=== PATIENT | male | born 1995 | race Caucasian/White ===

== ENCOUNTER 2021-11-12 07:27 | Emergency (ER) | payer OTHER ==
--- NOTE | 2021-11-12 07:35 | EDM.PDOC ---
ED HPI GENERAL MEDICAL PROBLEM - General Chief Complaint: Back Pain or Injury Stated Complaint: BACK PAIN- POSSIBLY KIDNEY STONES Time Seen by Provider: 11/12/21 07:33 - History of Present Illness INITIAL COMMENTS - FREE TEXT/NARRATIVE: 26-year-old male presenting with 3 days of intermittent off and severe right flank pain similar to prior kidney stones. Patient has had 4 prior kidney stones but the symptoms have never lasted this long he is always been able to pass them within a day or 2. No fevers some vomiting during the episodes of severe pain no chest pain or shortness of breath patient is status post appendectomy he has a history of anxiety but no other medical problems. He also notes hematuria over the last 2 days which is finding he has not had with renal colic in the past. Right Flank Pain Score (Numeric/FACES): 4 - Related Data Allergies Allergy/AdvReac Type Severity Reaction Status Date / Time Penicillins Allergy Rash Verified 11/12/21 07:34 Home Meds: Home Meds Hydrocodone/Acetaminophen [HYDROcodone-Acetaminophen 10-325 MG] 1 each PO TID PRN 4 Days #12 tablet 11/12/21 [Rx] Ibuprofen 600 mg PO TID 5 Days #15 tablet 11/12/21 [Rx] Propranolol [Inderal] 20 mg PO BID 11/12/21 [History] busPIRone [Buspar] 10 mg PO BID 11/12/21 [History] ED ROS GENERAL - Review of Systems Review Of Systems: See Below Free Text/Narrative/Comment: General: No fever. ENT: No sore throat. Neck: No neck stiffness. Respiratory: No shortness of breath. Cardiac: No chest pain. Gastrointestinal: No nausea, vomiting or abdominal pain. Urinary: Per HPI Musculoskeletal: No myalgias/arthralgias. Neurologic: No headache. ED EXAM, GENERAL - Physical Exam Exam: See Below Free Text/Narrative:: General Appearance: No acute distress, appears comfortable HEENT: Normocephalic/atraumatic, sclera anicteric, mucous membranes moist Neck: Normal range of motion Chest and Lungs: Bilateral breath sounds, clear to auscultation Cardiovascular: Regular rate and rhythm Abdomen: Soft, non-tender Musculoskeletal: No edema or tenderness Neurologic: Awake, alert, no obvious deficits, moving all extremities Psychiatric: Appropriate, cooperative Course - Vital Signs Last Recorded V/S: Last Vital Signs Temp 96.8 F L 11/12/21 08:32 Pulse 60 11/12/21 08:32 Resp 16 11/12/21 08:32 BP 123/79 11/12/21 08:32 Pulse Ox 96 11/12/21 08:32 - Orders/Labs/Meds Labs: Laboratory Tests 11/12/21 11/12/21 11/12/21 Range/Units 07:35 07:35 08:00 WBC 7.23 (4.0-11.0) K/uL RBC 4.72 (4.50-5.90) M/uL Hgb 14.5 (13.0-17.0) g/dL Hct 42.0 (38.0-50.0) % MCV 89.0 (80.0-98.0) fL MCH 30.7 (27.0-32.0) pg MCHC 34.5 (31.0-37.0) g/dL RDW Std Deviation 40.9 (28.0-62.0) fl RDW Coeff of Ana 13 (11.0-15.0) % Plt Count 333 (150-400) K/uL MPV 9.50 (7.40-12.00) fL Neut % (Auto) 75.5 (48.0-80.0) % Lymph % (Auto) 16.3 (16.0-40.0) % [place] % (Auto) 5.9 (0.0-15.0) % Eos % (Auto) 1.9 (0.0-7.0) % Baso % (Auto) 0.4 (0.0-1.5) % Neut # (Auto) 5.5 (1.4-5.7) K/uL Lymph # (Auto) 1.2 (0.6-2.4) K/uL [place] # (Auto) 0.4 (0.0-0.8) K/uL Eos # (Auto) 0.1 (0.0-0.7) K/uL Baso # (Auto) 0.0 (0.0-0.1) K/uL Nucleated RBC % 0.0 /100WBC Nucleated RBCs # 0 K/uL Sodium 140 (136-148) mmol/L Potassium 3.6 (3.5-5.1) mmol/L Chloride 104 (98-107) mmol/L Carbon Dioxide 26.7 (21.0-32.0) mmol/L BUN 9 (7.0-18.0) mg/dL Creatinine 0.9 (0.8-1.3) mg/dL Est Cr Clr Drug Dosing 124.77 mL/min Estimated GFR (MDRD) > 60.0 ml/min Glucose 114 H (74-106) mg/dL Calcium 8.7 (8.5-10.1) mg/dL Urine Color YELLOW Urine Appearance SLT CLOUDY Urine pH 6.0 (5.0-8.0) Ur Specific [place] 1.025 (1.001-1.035) Urine Protein TRACE H (NEGATIVE) mg/dL Urine Glucose (UA) NEGATIVE (NEGATIVE) mg/dL Urine Ketones NEGATIVE (NEGATIVE) mg/dL Urine Occult Blood LARGE H (NEGATIVE) Urine Nitrite NEGATIVE (NEGATIVE) Urine Bilirubin NEGATIVE (NEGATIVE) Urine Urobilinogen 0.2 (<2.0) EU/dL Ur Leukocyte Esterase NEGATIVE (NEGATIVE) Urine RBC 17-20 (0-2/HPF) Urine WBC 1-2 (0-5/HPF) Ur Epithelial Cells RARE (NONE-FEW) Urine Bacteria FEW (NEGATIVE) Urine Mucus LIGHT (NONE-MOD) Meds: Medications Discontinued Medications Generic Name Dose Route Start Last Admin Trade Name Freq PRN Reason Stop Dose Admin Ketorolac Tromethamine 15 mg 11/12/21 07:45 11/12/21 07:53 Ketorolac 30 Mg/Ml Sdv IVPUSH 11/12/21 07:46 15 mg ONETIME ONE Administration Departure - Departure Time of Disposition: 08:53 Disposition: Home, Self-Care 01 Condition: Good Clinical Impression: Renal colic on right side, Pulmonary nodule - Discharge Information *PRESCRIPTION DRUG MONITORING PROGRAM REVIEWED*: Yes *COPY OF PRESCRIPTION DRUG MONITORING REPORT IN PATIENT KYLER: No Prescriptions: Hydrocodone/Acetaminophen [HYDROcodone-Acetaminophen 10-325 MG] 1 each PO TID PRN 4 Days #12 tablet PRN Reason: severe pain Ibuprofen 600 mg PO TID 5 Days #15 tablet Instructions: Renal Colic, Apfp-sm-Hcps Forms: ED Department Discharge Additional Instructions: Your CT scan showed an unexpected finding which was a nodule (abnormal amount of tissue) in one of your lungs. This is not something to be overly concerned about but it is something that is important for you to know about and important you discuss with your primary care doctor. The most common causes of pulmonary nodules in your age group are old infections which led to scar tissue. It is my hope and expectation that you will be able to pass this kidney stone on your own in the next couple days. However, it is also possible that you may need to see a urologist order for them to do a lithotripsy or other procedures in order to remove this kidney stone. If you are still having any symptoms on Sunday I encourage you to follow-up with a urologist. There are currently no neurologists practicing in [place]. Below is the contact information for the urology clinic at [facility] in [place]. I encourage you to take the ibuprofen 3 times daily with meals to help control your pain. You can also use the stronger opioid pain medication as you need to for severe breakthrough pain. If you do take this opioid medication please do not combine it with alcohol or any other drugs and do not drive or operate heavy machinery while you are taking it. [facility] [employer] [phone] [address] [place] [address] The following information is given to patients seen in the emergency department who are being discharged to home. This information is to outline your options for follow-up care. We provide all patients seen in our emergency department with a follow-up referral. The need for follow-up, as well as the timing and circumstances, are variable depending upon the specifics of your emergency department visit. If you don't have a primary care physician on staff, we will provide you with a referral. We always advise you to contact your personal physician following an emergency department visit to inform them of the circumstance of the visit and for follow-up with them and/or the need for any referrals to a consulting specialist. The emergency department will also refer you to a specialist when appropriate. This referral assures that you have the opportunity for follow-up care with a specialist. All of these measure are taken in an effort to provide you with optimal care, which includes your follow-up. Under all circumstances we always encourage you to contact your private physician who remains a resource for coordinating your care. When calling for follow-up care, please make the office aware that this follow-up is from your recent emergency room visit. If for any reason you are refused follow-up, please contact the [facility] Emergency Department at and asked to speak to the emergency department charge nurse. Sepsis Event Note (ED) - Evaluation Sepsis Screening Result: No Definite Risk - Focused Exam Vital Signs: Vital Signs Temp Pulse Resp BP Pulse Ox 11/12/21 08:32 96.8 F L 60 16 123/79 96 11/12/21 07:30 96.7 F L 86 18 120/86 95 - Assessment/Plan Assessment:: 26-year-old male presented with signs and symptoms most consistent with renal colic other etiologies considered as well but felt less likely. Toradol ordered for pain CBC, BMP, urinalysis to exclude associated infection and YSABEL. Noncontrast CT ordered to further assess given duration of symptoms and lack of availability of ultrasound. Pain remains controlled. Labs are unremarkable no signs of infection or YSABEL patient has a 5 mm right mid ureteral stone which is the cause of his symptoms. Patient discharged with ibuprofen and [place] prescriptions encouraged to follow- up with urology. [facility] follows with the [facility] and will call them on Sunday as well. The presence of the pulmonary nodules was discussed and a copy of the CT result was provided and he will discuss that with his doctor through the [facility].
[2021-11-12] MEDS ORDERED: Ketorolac 30 MG/ML SDV IVPUSH ONE (07:45)
[2021-11-12 08:00] LABS: BLOOD UREA NITROGEN,BUN 9 mg/dL (7.0-18.0); CARBON DIOXIDE,CO2 26.7 mmol/L (21.0-32.0); CHLORIDE,CL 104 mmol/L (98-107); GLUCOSE RANDOM 114 mg/dL (74-106); POTASSIUM,K 3.6 mmol/L (3.5-5.1); SODIUM,NA 140 mmol/L (136-148)
--- NOTE | 2021-11-12 08:40 | CT ---
INDICATION: Right flank pain. TECHNIQUE: Noncontrast CT scan of the abdomen and pelvis. FINDINGS: The lung bases show a 3 mm pulmonary nodule in the anterior aspect of the right lower lobe best seen on image 22 of series 201. 4 mm pulmonary nodule in the anterior aspect of the right middle lobe best seen on image 1 of series 201. No focal abnormalities identified in the visualized portions of the liver, spleen, pancreas, and adrenal glands. 5 mm stone in the mid to distal right ureter causes mild right-sided hydronephrosis. A few small nonobstructing nephroliths in both kidneys. The kidneys are otherwise unremarkable. No left-sided hydronephrosis. The GI tract is incompletely distended but shows no gross abnormalities. No retroperitoneal, pelvic sidewall, or mesenteric adenopathy. Impression : 1. 5 mm stone in the mid to distal right ureter causes mild right-sided hydronephrosis. 2. Two small right-sided pulmonary nodules. If the patient has a history of smoking a follow-up chest CT scan should be considered in 1 year to document stability of these nodules. Otherwise, no follow-up is required. Please note that all CT scans at this facility use dose modulation, iterative reconstruction, and/or weight-based dosing when appropriate to reduce radiation dose to as low as reasonably achievable. Dictated by Darryl Ivey MD @ 11/12/2021 8:38:01 AM (Electronically Signed)
== END 2021-11-12 09:00 | disposition home or self-care (01) ==
LOC: MW.ED 07:27
DX: N13.2 Hydronephrosis with renal and ureteral calculous obstruction (principal); R91.1 Solitary pulmonary nodule; Z88.0 Allergy status to penicillin
CPT/HCPCS: 36415; 74176; 80048; 81001; 85025; 96374; 99284; J1885

== ENCOUNTER 2024-05-23 22:10 | Emergency (ER) | payer OTHER | END 2024-05-24 00:15 | disposition home or self-care (01) | LOC: MW.ED 22:10 | DX: S42.021A Displaced fracture of shaft of right clavicle, initial encounter for closed fracture (principal); Z90.49 Acquired absence of other specified parts of digestive tract; Z88.0 Allergy status to penicillin; Z75.8 Other problems related to medical facilities and other health care; X50.9XXA Other and unspecified overexertion or strenuous movements or postures, initial encounter | CPT/HCPCS: 73030-26-RT; 73030-RT; 99282; 99283 ==